=== PATIENT | female | born 2000 | race Caucasian/White ===

== ENCOUNTER → 2019-11-07 | Outpatient (CLI) | payer MEDICAID ==
[2019-11-07 13:01] LABS: HCG, SERUM QUALITATIVE NEGATIVE (NEGATIVE)
[2019-11-07 13:08] LABS: FREE T4 0.93 NG/DL (0.76-1.46)
[2019-11-07 13:10] LABS: PROLACTIN 6.2 NG/ML
[2019-11-10 00:06] LABS: TESTOSTERONE FREE (DIRECT) 4.2 pg/mL (0.0-4.2)
== END ==
LOC: M WUC 10:36
PROVIDERS: ATTEND Nurse Practitioner Women's Health
DX: N92.6 Irregular menstruation, unspecified (principal)

== ENCOUNTER → 2019-11-19 | Outpatient (CLI) | payer MEDICAID ==
--- NOTE | 2019-11-19 19:10 | REP ---
Focused left breast sonography: History: Mobile cystic 1.5 cm mass to at 3-o'clock to 4-o'clock position in the left breast 3 cm from the areola. No comparison breast imaging. Sonographic findings: Scanning is performed at 3-o'clock to 4-o'clock in the area of palpable abnormality. A 3.1 x 1.8 x 2.8 cm irregular lobulated hypoechoic solid lesion is seen. This is located 6 cm from the nipple. Its long axis is parallel to the skin. Its contour is lobulated. There is internal Doppler flow. Some images show enhanced through transmission. The lesion is compatible with but not specific for fibroadenoma. Impression: BIRADS category 4 suspicious focused left breast sonographic findings: Possible fibroadenoma. Solid lesion corresponding to the palpable abnormality. Ultrasound-guided needle biopsy should be considered. Electronically Signed by Ed Martinez MD 11/19/2019 08:10 P
== END ==
LOC: M RAD 12:43
PROVIDERS: ATTEND Nurse Practitioner Women's Health
DX: N63.23 Unspecified lump in the left breast, lower outer quadrant (principal)

== ENCOUNTER → 2019-12-19 | Outpatient (CLI) | payer OTHER ==
[2019-12-19 13:57] VITALS: BP 122/80
--- NOTE | 2019-12-20 09:06 | REP ---
FOCUSED LEFT BREAST SONOGRAPHY: HISTORY: Left breast mass 3-4-o'clock position. Comparison breast sonography November 19, 2019. FINDINGS: Sonographic guidance is provided to Dr. Spivey who performed ultrasound-guided needle biopsy procedure. Marker clip placement.
--- NOTE | 2019-12-22 14:26 | ROOPDOC ---
[facility] Report Of Operation Report of Operation DATE OF PROCEDURE: 12/22/19 PREPROCEDURE DIAGNOSES: Left breast mass POSTPROCEDURE DIAGNOSES: Left breast mass PROCEDURE: Ultrasound-guided left breast mass biopsy with clip placement SURGEON: Thompson Rodriguez APARTMENT LEASING CONSULTANT: ANESTHESIA: Local anesthetic was used. ESTIMATED BLOOD LOSS: Approximately 1 mL. COMPLICATIONS: None. REMARKS: Postbiopsy mammogram was not done since patient is of young age and she did not have previous mammogram. DESCRIPTION OF PROCEDURE: Lidocaine 1% LOT [id number] [id number] Expiration 10/2020 Sodium Bicarbonate 8.4% LOT [id number] Expiration 01/2021 Hydromark clip LOT [id number] Expiration 07/2022 SHAPE 4 Bx device: BARD [id number] x10 cm LOT HUEN [id number] Expiration 09/2022 Informed consent was obtained. The most common risk and possible complications including bleeding, hematoma, bruising, infection, injury to surrounding structures were explained to the patient and she expressed understanding. Patient was taken to the procedure room and placed on the bed in the supine position with the left upper extremity placed above the head. Appropriate time out was done stating patients name, date of , and the procedure to be performed. The left breast was prepped and draped in the usual fashion. The ultrasound was used to confirm the location of the lesion in the left breast at 4:00 3 centimeters from the nipple. Plain Lidocaine 1% and 8.4% sodium bicarbonate 10:1 mix was used to numb the sk in, the biopsy site and tissues along the anticipated biopsy tract. Small skin incision was made with blade number 11. BARD Marquee 14G cannula with introducer ([id number]) was inserted through the incision and advanced under the ultrasound guidance to position immediately adjacent to the lesion. Next, the introducer was removed and BARD Marquee 14G biopsy device was places in the ca nnula. Pre-biopsy imaging, and post-biopsy imaging were captured. Five good core biopsies were taken at various levels of the lesion. Specimen was placed in formaldehyde, labeled with appropriate biopsy site and patients name, and sent to pathology for evaluation. Next, the biopsy device was withdrawn and a clip introducer was inserted into the biopsy site via the cannula. The Hydromark clip was deployed under direct vision. Post-clip placement image was captured. Manual pressure over the biopsy cavity and tract was held after the clip introducer was withdrawn. No bleeding was noted upon removal of the pressure. Post-biopsy mammogram was not done since patient did not have mammogram done previously due to her young age and the fact that lesion was palpable and sonographically visible. Postprocedural dressing was placed. Patient tolerated procedure well. Discharge instructions were discussed with the patient and she expressed understanding. THOMPSON RODRIGUEZ DO Dec 22, 2019 14:26
== END ==
LOC: M WHCPRO 12:44
PROVIDERS: ATTEND Surgery
DX: N60.22 Fibroadenosis of left breast (principal)

== ENCOUNTER → 2020-02-09 | Outpatient (CLI) | payer OTHER ==
[~2020-02-09] MED LIST: ULTR50TA8 PO
== END ==
LOC: M LABSMTC 08:59
PROVIDERS: ATTEND Anesthesiology
DX: Z01.818 Encounter for other preprocedural examination (principal); Z11.59 Encounter for screening for other viral diseases

== ENCOUNTER 2020-02-12 06:13 | Day surgery (SDC) | payer OTHER ==
[~2020-02-12] VITALS: Ht 157.5 cm; Wt 85.3 kg
[~2020-02-12 06:13] MED LIST changes: +LR 1,000 ML IV ONE; -ULTR50TA8 PO
[2020-02-12] MEDS ORDERED: BUPIVACAINE HCL 0.25% 30ML VIAL As Ordered ONE (06:49)
[2020-02-12] MEDS ORDERED: LIDOCAINE 1% SDV 30ML VIAL As Ordered ONE (06:49)
[2020-02-12] MEDS ORDERED: HEPARIN SOD (PORCINE) 5000UNITS/ML VIAL (J1644 PER 1000UNITS) SQ ONE (07:00)
[2020-02-12] MEDS ORDERED: ceFAZolin SOD 2 GM in IV 1 EA IV ONE (07:00)
[2020-02-12] MEDS ORDERED: propofoL 200 MG/20 ML VIAL As Ordered ONE (07:17)
[2020-02-12] MEDS ORDERED: LIDOCAINE 2% 100MG/5ML SDV (FOR ANES.) As Ordered ONE (07:17)
[2020-02-12] MEDS ORDERED: fentaNYL 100 MCG/2 ML INJECTION (J3010) As Ordered ONE (07:17)
[2020-02-12] MEDS ORDERED: MIDAZOLAM INJ 2MG/2ML VIAL (J2250 PER 1MG) As Ordered ONE (07:18)
[2020-02-12] MEDS ORDERED: ONDANSETRON 4MG/2ML VIAL As Ordered ONE (08:16)
[2020-02-12] MEDS ORDERED: METOCLOPRAMIDE INJ 10MG/2ML VIAL (J2765 PER 1) As Ordered ONE (08:16)
[2020-02-12] MEDS ORDERED: KETOROLAC 60 MG/2 ML VIAL As Ordered ONE (08:16)
[2020-02-12] MEDS ORDERED: dexameTHASONE 4 MG/ML 1ML VIAL (J1100 PER 1MG) As Ordered ONE (08:17)
[2020-02-12] MEDS ORDERED: ACETAMINOPHEN 1000MG 100ML IV BTL (OFIRMEV) (J0131 PER 10MG) As Ordered ONE (08:17)
[2020-02-12] MEDS ORDERED: ULTR50TA8 PO (09:20)
[2020-02-12] MEDS ORDERED: KETOROLAC 30 MG/ML 1ML VIAL IV PRN (09:30)
[2020-02-12] MEDS ORDERED: HYDROMORPHONE HCL 0.5 MG/ 0.5 ML SYRINGE (J1170 PER 1) IV PRN (09:30)
[2020-02-12] MEDS ORDERED: oxyCODONE 5MG TAB PO PRN (09:30)
[2020-02-12] MEDS ORDERED: LR 1,000 ML IV SCH (09:30)
[2020-02-12] MEDS ORDERED: ONDANSETRON 4MG/2ML VIAL IV PRN (09:30)
[2020-02-12] MEDS ORDERED: fentaNYL 100 MCG/2 ML INJECTION (J3010) IV PRN (09:30)
[2020-02-12 10:49] VITALS: BP 133/82
--- NOTE | 2020-02-12 22:29 | ROOPDOC ---
[facility] Report Of Operation Report of Operation DATE OF PROCEDURE: 02/12/20 PREPROCEDURE DIAGNOSES: large left breast fibroadenoma POSTPROCEDURE DIAGNOSES: large left breast fibroadenoma PROCEDURE: Left breast excisional biopsy SURGEON: Thompson Rodriguez DEPUTY ASSESSOR: ANESTHESIA: general ESTIMATED BLOOD LOSS: Approximately 5 mL. COMPLICATIONS: none REMARKS: clip seen in specimen DESCRIPTION OF PROCEDURE: INDICATIONS: Ms. Hart is a 19-year-old woman who found a moderate size lump in her left breast. The ultrasound guided biopsy was done and showed fibroadenoma. Due to the size of the mass, excision was recommended. Risks and possible complications of surgical procedure including bleeding, in fection and injury to surrounding structures were explained to the patient and she wished to proceed. Consent was signed. My initials were placed on the operative site. Subcutaneous injection of 5000 units of heparin was done in Preop. DETAILS: Patient was taken to the operating room and placed on the operating room table. A sign in was called stating patients name, date of and the procedure to be done. Preoperative antibiotics were infused. Smooth induction of general anesthesia was done. Patients hands were extended on arm rests. Care was taken not to over extend the arms. Next, patients left breast and axilla were prepped and draped in the usual fashion. Appropriate time out was done. Patients name, date of , and the procedure to be done were confirmed. Next, local anesthetic using 1% lidocaine and 0.25 % Marcaine 50/50 mix was injected at the site of planned left lateral inframammary fold incision. The incision was made with the scalpel. Dissection was carried toward the mass loca lized with palpation and intraoperative ultrasonography. The Hydromark clip was identified in the tissue with intraoperative hockey stick ultrasound probe. The mass was from surrounding tissues and carefully removed from the breast. Specimen was then placed on the grid and placed in [employer] Specimen Imaging System. The image revealed the Hydromark in the specimen. The specimen was labeled with patients name and left excisional biopsy and sent to pathology. Next, the wound was irrigated thoroughly and adequate hemostasis was assured. Additional local anesthetic was injected into surrounding tissues. space was approximated with 3-0 Vicryl. The dermis was closed with 3-0 Monocryl and skin was closed with 4-0 Monocryl. Surgical glue was placed over the incision. Patient emerged from the anesthesia without any problems. Fluffs were placed over the operative site and patients chest was wrapped snuggly in the GIOVANNI wrap. Sponge and instrument counts were done and were correct. Patient tolerated procedure well and was taken to recovery unit in stable condition. THOMPSON RODRIGUEZ DO February 12, 2020 09:17
--- NOTE | 2020-02-13 11:12 | REP ---
SPECIMEN RADIOGRAPHY LEFT BREAST: Single view. HISTORY: Large fibroadenoma. FINDINGS: Specimen radiography demonstrates a fairly homogeneous oval-shaped mass lesion containing a previously placed HydroMARK clip. Electronically Signed by Ed Martinez MD 02/13/2020 11:46 A
== END 2020-02-12 10:53 | disposition home or self-care (01) ==
LOC: M SDC 06:13
PROVIDERS: ATTEND Surgery
DX: N60.22 Fibroadenosis of left breast (principal); Z92.21 Personal history of antineoplastic chemotherapy; Z92.3 Personal history of irradiation
CPT/HCPCS: 19120; 81025; 86850; 86900; 86901; 88305; J0131; J0690; J1100; J1644; J1885; J2250; J2405; J2765; J3010

== ENCOUNTER → 2020-10-07 | Outpatient (CLI) | payer OTHER, MEDICAID ==
[~2020-10-07] MED LIST changes: -LR 1,000 ML IV ONE; +ULTR50TA8 PO
[2020-10-07 16:43] LABS: FOLLICLE STIMULATING HORMONE 4.4 mIU/mL; LUTEINIZING HORMONE 9.7 mIU/mL; PROGESTERONE 5.49 NG/ML
== END ==
LOC: M WUC 13:15
PROVIDERS: ATTEND Specialist
DX: N92.6 Irregular menstruation, unspecified (principal)

== ENCOUNTER → 2020-12-17 | Outpatient (REF) | payer OTHER, MEDICAID ==
[2020-12-17 14:32] LABS: HEMATOCRIT 39.7 % (36.0-47.0); HEMOGLOBIN 13.4 g/dl (12.0-15.5); MEAN CORPUSCULAR HEMOGLOBIN 29.7 pg (27.0-33.0); MEAN CORPUSCULAR HGB CONC 33.8 g/dl (32.0-36.5); PLATELET COUNT, AUTOMATED 267 10^3/uL (150-450); RED BLOOD COUNT 4.51 10^6/uL (4.00-5.40); WHITE BLOOD COUNT 8.6 10^3/uL (4.0-10.0)
[2020-12-17 15:05] LABS: FREE T4 0.97 NG/DL (0.76-1.46); THYROID STIMULATING HORMONE 0.875 uIU/ML (0.358-3.740)
[2020-12-17 15:31] LABS: HEMOGLOBIN A1c 5.1 %
[2020-12-17 16:23] LABS: HEPATITIS C VIRUS ABY INDEX < 0.0 INDEX (<0.8)
[2020-12-17 16:24] LABS: HIV 1&2 SCREEN CENTAUR NEGATIVE (NEGATIVE)
[2020-12-17 16:28] LABS: CHLAMYDIA DNA AMPLIFICATION NEGATIVE (NEGATIVE); GC DNA AMPLIFICATION NEGATIVE (NEGATIVE)
== END ==
LOC: M PLALAB 09:53
PROVIDERS: ATTEND Advanced Practice Midwife
DX: Z36.89 Encounter for other specified antenatal screening (principal); Z3A.09 9 weeks gestation of pregnancy; E07.9 Disorder of thyroid, unspecified

== ENCOUNTER → 2021-02-18 | Outpatient (CLI) | payer OTHER ==
--- NOTE | 2021-02-18 13:25 | REP ---
INDICATION: ANATOMY COMPARISON: None. TECHNIQUE: Transabdominal obstetrical ultrasound with color Doppler evaluation. FINDINGS: Examination demonstrates a single live intrauterine in cephalic presentation. motion is identified by technologist. Placenta is noted posterior and grade 0 without evidence for placenta previa or abruption. Amniotic fluid volume is normal. Cervix measures 3.1 cm in length and appears closed.. Gestational age by LMP 18 weeks 0 days with AVINASH 07/22/2021. Gestational age by current measurements 18 weeks 1 day with AVINASH 07/21/2021. FHR equals 150 beats per minute. Estimated weight 227 grams (55thpercentile). Anatomical assessment demonstrates normal structures including cranium, choroid plexus, cavum, cerebellum/posterior fossa, lungs, four-chamber heart/ventricular outflow tracts, diaphragm, stomach, cord insertion/three-vessel cord, kidneys/bladder, spine, and extremities. IMPRESSION: 1. Single live intrauterine in cephalic presentation demonstrating appropriate estimated weight. 2. Limited evaluation of the facial profile and nose/lips. Remainder of the anatomical assessment is complete and normal. <Electronically signed by Marcelino Crawford > 02/18/21 [id number]
== END ==
LOC: M WHC 12:31
PROVIDERS: ATTEND Specialist
DX: Z34.02 Encounter for supervision of normal first pregnancy, second trimester (principal); Z36.89 Encounter for other specified antenatal screening; Z3A.18 18 weeks gestation of pregnancy

== ENCOUNTER → 2021-03-30 | Outpatient (CLI) | payer OTHER ==
--- NOTE | 2021-03-30 23:00 | REP ---
INDICATION: F/U ANATOMY COMPARISON: 02/18/2021 TECHNIQUE: Transabdominal obstetrical ultrasound with color Doppler evaluation. FINDINGS: Examination demonstrates a single live intrauterine in cephalic presentation. motion is identified by technologist. Placenta is noted posterior and grade 1 without evidence for placenta previa or abruption. Amniotic fluid volume is normal. Cervix measures 3.2 cm in length and appears closed. No evidence for nuchal cord. Selected gestational age: 23 weeks 5 days with AVINASH 07/22/2021. Gestational age by current measurements 23 weeks 5 days with AVINASH 07/22/2021. FHR equals 146 beats per minute. Estimated weight 601 grams (32ndpercentile). Anatomical assessment demonstrates normal structures including facial profile and nose/lips. IMPRESSION: Single live intrauterine demonstrating appropriate estimated weight. In conjunction with prior examination anatomical assessment is complete and normal. <Electronically signed by Marcelino Crawford > 03/30/21 [id number]
== END ==
LOC: M WHC 10:24
PROVIDERS: ATTEND Specialist
DX: Z36.89 Encounter for other specified antenatal screening (principal); Z3A.23 23 weeks gestation of pregnancy

== ENCOUNTER → 2021-05-05 | Outpatient (CLI) | payer OTHER ==
[2021-05-05 10:40] LABS: HEMATOCRIT 34.9 % (36.0-47.0); MEAN CORPUSCULAR HEMOGLOBIN 30.8 pg (27.0-33.0); MEAN CORPUSCULAR HGB CONC 34.4 g/dl (32.0-36.5); MEAN CORPUSCULAR VOLUME 89.5 fl (80.0-96.0); PLATELET COUNT, AUTOMATED 260 10^3/uL (150-450); WHITE BLOOD COUNT 12.6 10^3/uL (4.0-10.0)
[2021-05-05 11:57] LABS: GC DNA AMPLIFICATION NEGATIVE (NEGATIVE)
== END ==
LOC: M PLALAB 07:43
PROVIDERS: ATTEND Advanced Practice Midwife
DX: Z34.92 Encounter for supervision of normal pregnancy, unspecified, second trimester (principal); Z3A.24 24 weeks gestation of pregnancy

== ENCOUNTER 2021-05-06 13:13 | Outpatient (CLI) | payer OTHER, MEDICAID ==
[~2021-05-06] VITALS: Ht 157.5 cm; Wt 82.6 kg
[2021-05-06 13:28] VITALS: BP 135/79
[2021-05-06 14:11] LABS: APPEARANCE, URINE CLEAR (CLEAR); BACTERIA, URINE AUTO 1+ (NEGATIVE); BILIRUBIN, URINE AUTO NEGATIVE (NEGATIVE); BLOOD, URINE BLOOD NEGATIVE (NEGATIVE); COLOR, URINE YELLOW (YELLOW); GLUCOSE, URINE (UA) AUTO NEGATIVE (NEGATIVE); KETONE, URINE AUTO 2+ mg/dL (NEGATIVE); LEUKOCYTE ESTERASE, URINE AUTO TRACE (NEGATIVE); MUCUS, URINE SMALL (NEGATIVE); NITRITE, URINE AUTO NEGATIVE (NEGATIVE); PROTEIN, URINE AUTO 1+ mg/dL (NEGATIVE); RBC, URINE AUTO 2 /HPF (0-3); SPECIFIC GRAVITY URINE AUTO 1.016 (1.002-1.035); SQUAMOUS EPITHELIAL CELL UR AU 2 /HPF (0-6); WBC, URINE AUTO 4 /HPF (0-3)
--- NOTE | 2021-05-06 16:02 | IPN ---
PROGRESS NOTE DATE: 05/06/2021 SUBJECTIVE: Shanel is a 19-year-old 1, para 0, at 29 weeks gestation, estimated date of confinement (EDC) 07/22/2021 based on last menstrual period and confirmed by first trimester ultrasound. She presents to labor and delivery today with a report of low back pain on the right side that radiates to her right buttocks and down her right leg. She denies vaginal bleeding, leakage of fluid and contractions. The fetus has been active. She denies vaginal discharge, odor and irritation, and she denies burning with urination. OBSTETRIC HISTORY: Prima . OBSTETRIC LABORATORIES: Normal up to this point. PAST MEDICAL HISTORY: Noncontributory. SURGERIES: 1. Hernia repair. 2. Left breast. FAMILY HISTORY: Asthma, chronic obstructive pulmonary disease (COPD), thyroid, arthritis, diabetes and stroke. SOCIAL HISTORY: The patient is single; however, the father of the baby is at bedside and supportive. She is a nonsmoker. She denies alcohol use and drug use. No history of any sexually transmitted infections and she denies abuse, physical and emotional. ALLERGIES: CRANBERRIES, CATS, DOGS. CURRENT MEDICATIONS: vitamin. OBJECTIVE: VITAL SIGNS: Temperature 99.5, pulse 116, respirations 18, blood pressure 135/79, heart rate is 135 with moderate variability, positive accelerations, negative decelerations. There is some uterine irritability. STERILE VAGINAL EXAM: Deferred. BACK: Negative costovertebral angle (CVA) tenderness bilaterally. ABDOMEN: Gravid. Appropriate for gestational age. ASSESSMENT: Intrauterine at 29 weeks. heart rate appropriate for gestational age. Sciatic pain. Normal discomfort with . PLAN: Reviewed palliative measures related to sciatica pain, preventative measures. Reviewed signs and symptoms of labor, movement counts. Danger signs are reviewed, access to care and her partner's questions have been answered. She was given a note out of work for today and tomorrow. She is scheduled for a visit in two weeks and was advised to keep the routine scheduled appointment.
== END 2021-05-06 15:15 | disposition home or self-care (01) ==
LOC: M LDO 13:13
PROVIDERS: ATTEND Advanced Practice Midwife
DX: O26.893 Other specified pregnancy related conditions, third trimester (principal); Z3A.29 29 weeks gestation of pregnancy; M54.5 Low back pain; Z91.018 Allergy to other foods

== ENCOUNTER → 2021-06-18 | Outpatient (REF) | payer OTHER, MEDICAID | LOC: M SFHCWAGY 13:51 | PROVIDERS: ATTEND Obstetrics & Gynecology | DX: Z34.03 Encounter for supervision of normal first pregnancy, third trimester (principal); Z3A.00 Weeks of gestation of pregnancy not specified ==

== ENCOUNTER → 2022-01-05 | Outpatient (REF) | payer OTHER, MEDICAID | LOC: M PLALAB 11:50 | PROVIDERS: ATTEND Advanced Practice Midwife | DX: Z12.4 Encounter for screening for malignant neoplasm of cervix (principal) ==

== ENCOUNTER → 2022-01-05 | Outpatient (REF) | payer OTHER, MEDICAID | LOC: M SFHCWAGY 18:54 | PROVIDERS: ATTEND Advanced Practice Midwife | DX: Z12.4 Encounter for screening for malignant neoplasm of cervix (principal) ==

== ENCOUNTER → 2025-07-01 | Outpatient (CLI) | payer OTHER | LOC: M PLALAB 15:44 | PROVIDERS: ATTEND Nurse Practitioner Family | DX: N92.6 Irregular menstruation, unspecified (principal) ==

== ENCOUNTER → 2025-07-01 | Outpatient (REF) | payer OTHER | LOC: M PLALAB 16:13 | PROVIDERS: ATTEND Nurse Practitioner Family | DX: Z12.4 Encounter for screening for malignant neoplasm of cervix (principal) ==